=== PATIENT | female | born 1995 | race Caucasian/White ===

== ENCOUNTER 2018-02-03 16:27 | Emergency (ER) | payer BC, OTHER ==
--- NOTE | 2018-02-03 16:38 | ED Physician Documentation ---
PD HPI URI - Stated complaint Stated Complaint: COUGH,SORE THROAT/22WKS PREG - History obtained from History obtained from: Patient - History of Present Illness Timing - onset: Other (She is 22 weeks . She got sick about 5 days ago with sore throat which got better and then got worse again a few days ago associate with body aches, mild diarrhea, cough and runny nose. No shortness of breath.) Review of Systems Constitutional: reports: Chills, Fatigue. denies: Fever Nose: reports: Rhinorrhea / runny nose Throat: reports: Sore throat Respiratory: reports: Cough. denies: Dyspnea GI: denies: Abdominal Pain PD ED PE NORMAL - Vitals Vital signs reviewed: Yes - General General: Alert and oriented X 3, No acute distress - HEENT HEENT: PERRL, EOMI, Ears normal, Moist mucous membranes, Pharynx benign - Neck Neck: Supple, no meningeal sign, No bony TTP - Cardiac Cardiac: RRR, No murmur - Respiratory Respiratory: No respiratory distress, Clear bilaterally - Abdomen Abdomen: Non tender - Female Female : Other (Bedside ultrasound demonstrates single live intrauterine with heart rate of 143) - Back Back: No CVA TTP - Neuro Neuro: Alert and oriented X 3, Normal speech Results - Vitals Vitals: Vital Signs - 24 hr 02/03/18 16:36 Temperature 36.7 C Heart Rate 90 Respiratory 18 Rate Blood Pressure 124/76 O2 Saturation 97 Oxygen O2 Source Room air - Labs Labs: Laboratory Tests 02/03/18 02/03/18 16:35 16:35 Influenza A (Rapid) Negative Influenza B (Rapid) Negative Group A Strep Rapid Negative PD MEDICAL DECISION MAKING - ED course ED course: 22-year-old who is 22 weeks presents with symptoms that are consistent with a viral URI. She is well-appearing with a basically unremarkable examination. Her son recently had croup and she likely has the same virus. Flu and strep swabs are negative. Departure - Departure Disposition: 01 Home, Self Care Clinical Impression: Viral URI Condition: Good Record reviewed to determine appropriate education?: Yes Instructions: ED Viral Syndrome
[2018-02-03 16:45] VITALS: BP 124/76
== END 2018-02-03 17:02 | disposition home or self-care (01) ==
LOC: ED 16:27
DX: O26.892 Other specified pregnancy related conditions, second trimester (principal); J06.9 Acute upper respiratory infection, unspecified; B34.9 Viral infection, unspecified; Z3A.22 22 weeks gestation of pregnancy
CPT/HCPCS: 87070; 87275; 87276; 87430; 99282; 99283